=== PATIENT | female | born 1980 | race Caucasian/White ===

== ENCOUNTER 2017-07-22 01:23 | Emergency (ER) | payer OTHER ==
[~2017-07-22 01:23] MED LIST: HYDR-3580 PO; IBUP800T23 PO; WELL150T PO
[2017-07-22 01:27] VITALS: BP 128/69; PULSE 102; RESP 15; TEMP 98.2; O2SAT 100
[2017-07-22] MEDS ORDERED: ZANT300T PO (01:43)
[2017-07-22] MEDS ORDERED: DIME240C PO (01:43)
[2017-07-22] MEDS ORDERED: LEVO500T8 PO (01:43)
[2017-07-22] MEDS ORDERED: HYDR-3580 PO (01:43)
[2017-07-22] MEDS ORDERED: BUPR150CR PO (01:43)
[2017-07-22] MEDS ORDERED: ASPI-183 PO (01:43)
[2017-07-22] MEDS ORDERED: DIVA250ER PO (01:43)
[2017-07-22] MEDS ORDERED: CLINDAMYCIN 150 MG CAP PO ONE (02:15)
--- NOTE | 2017-07-22 02:32 | PD ---
HPI . 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 no pain just swelling and worries of infection and dishesion . on levaquin for the symptoms not improving PFSH Past Medical History Anxiety: No Cancer: No Cardiovascular Problems: No Diabetes: No Glaucoma: No Hepatitis: No Hiatal Hernia: No Hypertension: No Musculoskeletal: No Neurologic: Yes (TUMOR T12, L2) Respiratory: No Immunizations Current: No Thyroid Disease: No ?: Not LMP: tubal ligation : 9 Para: 2 Miscarriage: 6 Tubal Ligation: Yes Past Surgical History AICD: No Joint Replacement: No Pacemaker: No Other Surgery: Yes (NATHALIE BREAST AUGMENTATION) Social History Alcohol Use: No Tobacco Use: Yes (1/2 PPD) Substance Use: No Allergies-Medications (Allergen,Severity, Reaction): Coded Allergies: No Known Allergies (Verified Adverse Reaction, Unknown, 07/22/17) Reported Meds & Prescriptions Reported Meds & Active Scripts Active Acidophilus Probiotic (Lactobacillus) 100 Mg (1 Billion Cell) Cap 100 Mg PO TID Clindamycin (Clindamycin HCl) 300 Mg Cap 300 Mg PO TID Reported Depakote ER (Divalproex Sodium) 250 Mg Jose 500 Mg PO BID Wellbutrin SR 12 HR (Bupropion HCl) 150 Mg Tab 150 Mg PO Q12HR Zantac (Ranitidine HCl) 300 Mg Tab 300 Mg PO BID Aspirin 325 Mg Tab 325 Mg PO DAILY Tecfidera (Dimethyl Fumarate) 240 Mg Cap 240 Mg PO BID Levofloxacin 500 Mg Tablet 500 Mg PO DAILY Hydrocodone-Acetaminophen 7.5 Mg-325 Mg Tab 1 Tab PO Q8HR PRN Review of Systems Except as stated in HPI: all other systems reviewed are Neg Physical Exam Narrative GENERAL: non toxic appearance SKIN: Warm and dry. dishesion of scar to breast right > left HEAD: Atraumatic. Normocephalic. EYES: Pupils equal and round. No scleral icterus. No injection or drainage. ENT: No nasal bleeding or discharge. Mucous membranes pink and moist. NECK: Trachea midline. No JVD. CARDIOVASCULAR: Regular rate and rhythm. CHEST BREAST--> SCAR nipple on right dishesion and yellowish d/c from 6 o'clock on breast RESPIRATORY: No accessory muscle use. Clear to auscultation. Breath sounds equal bilaterally. GASTROINTESTINAL: Abdomen soft, non-tender, nondistended. Hepatic and splenic margins not palpable. MUSCULOSKELETAL: Extremities without clubbing, cyanosis, or edema. No obvious deformities. NEUROLOGICAL: Awake and alert. No obvious cranial nerve deficits. Motor grossly within normal limits. Five out of 5 muscle strength in the arms and legs. Normal speech. PSYCHIATRIC: Appropriate mood and affect; insight and judgment normal. Data Data Last Documented VS Vital Signs Date Time Temp Pulse Resp B/P (MAP) Pulse Ox O2 Delivery O2 Flow Rate FiO2 07/22/17 01:27 98.2 102 15 128/69 (88) 100 Orders Orders Clindamycin (Cleocin) (07/22/17 02:15) Complete Blood Count With Diff (07/22/17 02:09) Comprehensive Metabolic Panel (07/22/17 02:19) Blood Culture (07/22/17 02:19) Lactic Acid (07/22/17 02:32) Ed Discharge Order (07/22/17 03:16) Labs Laboratory Tests Test 07/22/17 02:30 White Blood Count 7.4 TH/MM3 Red Blood Count 4.28 MIL/MM3 Hemoglobin 14.5 GM/DL Hematocrit 40.6 % Mean Corpuscular Volume 94.7 FL Mean Corpuscular Hemoglobin 33.8 PG Mean Corpuscular Hemoglobin Concent 35.7 % Red Cell Distribution Width 12.7 % Platelet Count 305 TH/MM3 Mean Platelet Volume 8.3 FL Neutrophils (%) (Auto) 70.7 % Lymphocytes (%) (Auto) 19.3 % Monocytes (%) (Auto) 8.1 % Eosinophils (%) (Auto) 1.5 % Basophils (%) (Auto) 0.4 % Neutrophils # (Auto) 5.2 TH/MM3 Lymphocytes # (Auto) 1.4 TH/MM3 Monocytes # (Auto) 0.6 TH/MM3 Eosinophils # (Auto) 0.1 TH/MM3 Basophils # (Auto) 0.0 TH/MM3 CBC Comment DIFF FINAL Differential Comment Blood Urea Nitrogen 15 MG/DL Creatinine 0.69 MG/DL Random Glucose 99 MG/DL Total Protein 8.2 GM/DL Albumin 4.1 GM/DL Calcium Level 8.8 MG/DL Alkaline Phosphatase 60 U/L Aspartate Amino Transf (AST/SGOT) 11 U/L Alanine Aminotransferase (ALT/SGPT) 20 U/L Total Bilirubin 0.1 MG/DL Sodium Level 140 MEQ/L Potassium Level 3.9 MEQ/L Chloride Level 105 MEQ/L Carbon Dioxide Level 25.9 MEQ/L Anion Gap 9 MEQ/L Estimat Glomerular Filtration Rate 97 ML/MIN Lactic Acid Level 1.0 mmol/L MDM Medical Decision Making Medical Screen Exam Complete: Yes Emergency Medical Condition: Yes Differential Diagnosis dishesion of surgical wound vs post operative infection , complication , post op pain , infection other Narrative Course I add clindamycin to her coverage 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 and levaquin does not cover as well as clindamycin , pt to retuen to her surgeon in AM I give her cleocin PO in ER and on discharge Dr Richards name phone # for second opinion if she desires Diagnosis Primary Impression: Breast asymmetry Referrals: Haroldo Richards III, MD Patient Instructions: General Instructions, Wound Healing and Your Diet (ED) Scripts Lactobacillus (Acidophilus Probiotic) 100 Mg (1 Billion Cell) Cap 100 MG PO TID, #30 Prov: Hussein Jara MD 07/22/17 Clindamycin (Clindamycin) 300 Mg Cap 300 MG PO TID for Infection, #30 CAP 0 Refills Prov: Hussein Jara MD 07/22/17 Disposition: 01 DISCHARGE HOME Condition: Good Hussein Jara MD Jul 22, 2017 02:32
[2017-07-22 02:50] LABS: AUTOMATED NEUTROPHIL # 5.2 TH/MM3 (1.8-7.7); BASOPHIL % 0.4 % (0.0-2.0); EOSINOPHIL # 0.1 TH/MM3 (0-0.4); EOSINOPHIL % 1.5 % (0.0-4.0); HEMATOCRIT 40.6 % (35.0-46.0); HEMOGLOBIN 14.5 GM/DL (11.6-15.3); LYMPH % 19.3 % (9.0-44.0); LYMPHOCYTE # 1.4 TH/MM3 (1.0-4.8); MEAN CELL VOLUME 94.7 FL (80.0-100.0); MEAN CORPUSCULAR HEMOGLOBIN 33.8 PG (27.0-34.0); MEAN CORPUSCULAR HGB CONC 35.7 % (32.0-36.0); MEAN PLATELET VOLUME 8.3 FL (7.0-11.0); MONO % 8.1 % (0.0-8.0); MONOCYTE # 0.6 TH/MM3 (0-0.9); NEUT % 70.7 % (16.0-70.0); PLATELET COUNT 305 TH/MM3 (150-450); RED BLOOD COUNT 4.28 MIL/MM3 (4.00-5.30); RED CELL DISTRIBUTION WIDTH 12.7 % (11.6-17.2); WHITE BLOOD COUNT 7.4 TH/MM3 (4.0-11.0)
[2017-07-22] MEDS ORDERED: ACID100C PO (03:03)
[2017-07-22] MEDS ORDERED: CLIN300C5 PO (03:03)
[2017-07-22 03:07] LABS: ALKALINE PHOSPHATASE 60 U/L (45-117); TOTAL BILIRUBIN ADULT 0.1 MG/DL (0.2-1.0); TOTAL PROTEIN 8.2 GM/DL (6.4-8.2)
[2017-07-22 03:10] LABS: ALBUMIN 4.1 GM/DL (3.4-5.0); ALT (GPT) 20 U/L (10-53); AST (GOT) 11 U/L (15-37); BICARBONATE 25.9 MEQ/L (21.0-32.0); BLOOD UREA NITROGEN 15 MG/DL (7-18); CALCIUM 8.8 MG/DL (8.5-10.1); CHLORIDE 105 MEQ/L (98-107); CREATININE 0.69 MG/DL (0.50-1.00); GLOMERULAR FILTRATION RATE 97 ML/MIN (>89); GLUCOSE,RANDOM 99 MG/DL (74-106); SODIUM (NA) 140 MEQ/L (136-145)
== END 2017-07-22 03:44 | disposition home or self-care (01) ==
LOC: NEPE 01:23
DX: N64.89 Other specified disorders of breast (principal); F17.200 Nicotine dependence, unspecified, uncomplicated; Z79.899 Other long term (current) drug therapy
CPT/HCPCS: 80053; 83605; 85025; 87040; 99283